=== PATIENT | female | born 1960 | race Caucasian/White ===

== ENCOUNTER 2018-08-21 19:09 | Emergency (ER) | payer SELFPAY ==
[~2018-08-21] VITALS: Ht 170.2 cm; Wt 79.4 kg
[2018-08-21 19:13] VITALS: BP 119/79
--- NOTE | 2018-08-21 20:41 | NUR ---
CALLED CHRISTIE TO HAVE IMAGES READ
== END 2018-08-21 21:00 | disposition home or self-care (01) ==
LOC: ER 19:12
DX: S52.122A Displaced fracture of head of left radius, initial encounter for closed fracture (principal); S60.512A Abrasion of left hand, initial encounter; S60.511A Abrasion of right hand, initial encounter; Z98.890 Other specified postprocedural states; W05.1XXA Fall from non-moving nonmotorized scooter, initial encounter; Y93.I9 Activity, other involving external motion; Y92.488 Other paved roadways as the place of occurrence of the external cause; Y99.8 Other external cause status
CPT/HCPCS: 29125; 73080; 73090; 73110; 99283; A6402